=== PATIENT | male | born 2000 | race Caucasian/White ===

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

== ENCOUNTER 2021-03-01 06:52 | Emergency (ER) | payer OTHER ==
[~2021-03-01] VITALS: Ht 190.5 cm; Wt 86.4 kg
[2021-03-01 06:52] VITALS: BP 148/86
--- NOTE | 2021-03-01 09:04 | REP ---
INDICATION: TESTICULAR PAIN. COMPARISON: 08/11/2010. TECHNIQUE: Real-time sonographic evaluation of scrotum and contents performed. FINDINGS: The right testicle is larger than left. Right testicle measures 4.9 x 2.5 x 3.1 cm and left testicle 3.8 x 1.8 x 2.9 cm. Echotexture of both testicles is homogeneous. There is no testicular mass. There is no evidence of testicular torsion, blood flow is seen in each testicle with duplex Doppler evaluation. The epididymis appears unremarkable bilaterally. IMPRESSION: The right testicle is larger than the left. There is no testicular mass or torsion. <Electronically signed by Dao Lombardo > 03/01/21 0901
--- NOTE | 2021-03-01 09:06 | REP ---
INDICATION: TESTICULAR PAIN. COMPARISON: None. TECHNIQUE: Real-time sonographic evaluation of bilateral inguinal regions performed, at rest and with Valsalva maneuver. FINDINGS: There is no evidence of inguinal hernia bilaterally. No mass or fluid collection is seen in either inguinal region. IMPRESSION: No evidence of inguinal hernia bilaterally. <Electronically signed by Dao Lombardo > 03/01/21 0902
--- NOTE | 2021-03-01 09:16 | REP ---
INDICATION: PREVIOUS FRACTURE WITH PAIN. COMPARISON: None. TECHNIQUE: Four views mandible. FINDINGS: There is no evidence of acute fracture of the mandible. There is no definite dislocation. Metallic plate and screws are seen body of the left mandible. IMPRESSION: No acute fracture, no definite dislocation. <Electronically signed by Dao Lombardo > 03/01/21 0974
[2021-03-01] MEDS ORDERED: FLOM0.4C39 PO (09:28)
[2021-03-01 09:41] LABS: BASO % 0.6 % (0.0-1.0); EOS % 0.1 % (0.0-3.0); HEMATOCRIT 50.3 % (42.0-52.0); HEMOGLOBIN 16.8 g/dl (13.5-17.5); LYMPH % 14.6 % (24.0-44.0); MEAN CORPUSCULAR HEMOGLOBIN 30.1 pg (27.0-33.0); MEAN CORPUSCULAR HGB CONC 33.4 g/dl (32.0-36.5); MONO # 0.7 10^3/uL (0.0-0.8); MONO % 9.9 % (2.0-8.0); NEUTROPHILS # 5.1 10^3/uL (1.5-8.5); NEUTROPHILS % 74.4 % (36.0-66.0); PLATELET COUNT, AUTOMATED 266 10^3/uL (150-450); RED BLOOD COUNT 5.59 10^6/uL (4.30-6.10); WHITE BLOOD COUNT 6.8 10^3/uL (4.0-10.0)
== END 2021-03-01 10:37 | disposition home or self-care (01) ==
LOC: M ED 06:52
DX: R68.84 Jaw pain (principal); R10.31 Right lower quadrant pain; R31.9 Hematuria, unspecified; N50.811 Right testicular pain

== ENCOUNTER → 2021-05-03 | Outpatient (REF) | payer OTHER ==
[~2021-05-03] MED LIST: FLOM0.4C39 PO
[2021-05-03 12:29] LABS: APPEARANCE, URINE CLEAR (CLEAR); BACTERIA, URINE AUTO NEGATIVE (NEGATIVE); BILIRUBIN, URINE AUTO NEGATIVE (NEGATIVE); BLOOD, URINE BLOOD NEGATIVE (NEGATIVE); COLOR, URINE YELLOW (YELLOW); GLUCOSE, URINE (UA) AUTO NEGATIVE (NEGATIVE); KETONE, URINE AUTO NEGATIVE (NEGATIVE); LEUKOCYTE ESTERASE, URINE AUTO NEGATIVE (NEGATIVE); MUCUS, URINE SMALL (NEGATIVE); NITRITE, URINE AUTO NEGATIVE (NEGATIVE); PROTEIN, URINE AUTO NEGATIVE (NEGATIVE); RBC, URINE AUTO 0 /HPF (0-3); SPECIFIC GRAVITY URINE AUTO 1.024 (1.002-1.035); SQUAMOUS EPITHELIAL CELL UR AU 0 /HPF (0-6); UROBILINOGEN, URINE AUTO 0.2 mg/dL (0.0-2.0); WBC, URINE AUTO 0 /HPF (0-3)
== END ==
LOC: M SMT 11:20
PROVIDERS: ATTEND Urology
DX: R31.29 Other microscopic hematuria (principal)

== ENCOUNTER → 2021-06-08 | Outpatient (CLI) | payer OTHER | LOC: M OUTALCOH 07:38 | PROVIDERS: ATTEND Psychiatry & Neurology Psychiatry | DX: F10.20 Alcohol dependence, uncomplicated (principal) ==

== ENCOUNTER 2021-07-21 10:00 | Outpatient (RCR) | payer OTHER | END 2021-07-24 | LOC: M OUTALCOH 10:00 | PROVIDERS: ATTEND Psychiatry & Neurology Psychiatry | DX: F10.20 Alcohol dependence, uncomplicated (principal); F12.20 Cannabis dependence, uncomplicated; F17.200 Nicotine dependence, unspecified, uncomplicated ==

== ENCOUNTER 2021-08-22 14:00 | Outpatient (RCR) | payer OTHER | END 2021-08-23 | LOC: M OUTALCOH 14:00 | PROVIDERS: ATTEND Psychiatry & Neurology Psychiatry | DX: F10.20 Alcohol dependence, uncomplicated (principal); F12.20 Cannabis dependence, uncomplicated; F17.200 Nicotine dependence, unspecified, uncomplicated ==

== ENCOUNTER 2021-09-03 19:03 | Emergency (ER) | payer OTHER ==
[~2021-09-03] VITALS: Ht 190.5 cm; Wt 78.0 kg
[2021-09-03 19:04] VITALS: BP 135/85
== END 2021-09-03 20:53 | disposition left against medical advice (07) ==
LOC: M ED 19:03
DX: Z53.21 Procedure and treatment not carried out due to patient leaving prior to being seen by health care provider (principal)

== ENCOUNTER 2021-09-22 09:00 | Outpatient (RCR) | payer OTHER | END 2021-09-23 | LOC: M OUTALCOH 09:00 | PROVIDERS: ATTEND Psychiatry & Neurology Psychiatry | DX: F10.20 Alcohol dependence, uncomplicated (principal); F12.20 Cannabis dependence, uncomplicated; F17.200 Nicotine dependence, unspecified, uncomplicated ==

== ENCOUNTER 2021-10-20 09:00 | Outpatient (RCR) | payer OTHER | END 2021-10-24 | LOC: M OUTALCOH 09:00 | PROVIDERS: ATTEND Psychiatry & Neurology Psychiatry | DX: F10.20 Alcohol dependence, uncomplicated (principal); F12.20 Cannabis dependence, uncomplicated; F17.200 Nicotine dependence, unspecified, uncomplicated ==

== ENCOUNTER 2021-11-15 08:44 | Outpatient (RCR) | payer OTHER | END 2021-11-21 | LOC: M OUTALCOH 08:44 | PROVIDERS: ATTEND Psychiatry & Neurology Psychiatry | DX: F10.20 Alcohol dependence, uncomplicated (principal); F12.20 Cannabis dependence, uncomplicated; F17.200 Nicotine dependence, unspecified, uncomplicated ==

== ENCOUNTER 2021-12-19 14:55 | Outpatient (RCR) | payer OTHER | END 2021-12-22 | LOC: M OUTALCOH 14:55 | PROVIDERS: ATTEND Psychiatry & Neurology Psychiatry | DX: F10.20 Alcohol dependence, uncomplicated (principal); F12.20 Cannabis dependence, uncomplicated; F17.200 Nicotine dependence, unspecified, uncomplicated ==

== ENCOUNTER 2022-01-12 15:00 | Outpatient (RCR) | payer OTHER | END 2022-01-21 | LOC: M OUTALCOH 15:00 | PROVIDERS: ATTEND Psychiatry & Neurology Psychiatry | DX: F10.20 Alcohol dependence, uncomplicated (principal); F12.20 Cannabis dependence, uncomplicated; F17.200 Nicotine dependence, unspecified, uncomplicated ==

== ENCOUNTER 2022-01-23 14:55 | Outpatient (RCR) | payer OTHER | END 2022-02-21 | LOC: M OUTALCOH 14:55 | PROVIDERS: ATTEND Psychiatry & Neurology Psychiatry | DX: F10.20 Alcohol dependence, uncomplicated (principal); F12.20 Cannabis dependence, uncomplicated; F17.200 Nicotine dependence, unspecified, uncomplicated ==

== ENCOUNTER 2022-02-09 12:52 | Outpatient (RCR) | payer OTHER | END 2022-02-21 | LOC: M OUTALCOH 12:52 | PROVIDERS: ATTEND Psychiatry & Neurology Psychiatry | DX: F10.20 Alcohol dependence, uncomplicated (principal); F12.20 Cannabis dependence, uncomplicated; F17.200 Nicotine dependence, unspecified, uncomplicated ==

== ENCOUNTER 2022-03-20 15:38 | Outpatient (RCR) | payer OTHER | END 2022-03-23 | LOC: M OUTALCOH 15:38 | PROVIDERS: ATTEND Psychiatry & Neurology Psychiatry | DX: F10.20 Alcohol dependence, uncomplicated (principal); F12.20 Cannabis dependence, uncomplicated; F17.200 Nicotine dependence, unspecified, uncomplicated ==